=== PATIENT | male | born 2000 | race Caucasian/White ===

== ENCOUNTER 2020-04-03 11:37 | Emergency (ER) | payer OTHER ==
[2020-04-03 12:08] LABS: BASOPHILS % (AUTO) 0.5 % (0.0-5.0); EOSINOPHILS % (AUTO) 1.9 % (0.0-8.0); HEMATOCRIT 44.8 % (42-54); LYMPHOCYTES % (AUTO) 30.7 % (21.0-51.0); MEAN CORPUSCULAR HEMOGLOBIN 30.7 pg (27.0-33.0); MEAN CORPUSCULAR HGB CONC 33.3 g/dL (32.0-36.0); MEAN CORPUSCULAR VOLUME 92.4 fL (80-100); MONOCYTES % (AUTO) 6.8 % (3.0-13.0); NEUTROPHILS % (AUTO) 59.7 % (40.0-77.0); PLATELET COUNT (AUTO) 324 K/uL (130-400); RED BLOOD CELL COUNT(AUTO) 4.85 MIL/uL (4.50-6.20); RED CELL DISTRIBUTION WIDTH 12.6 % (11.0-15.5)
[2020-04-03 12:18] LABS: POTASSIUM 4.1 mmol/L (3.5-5.1)
[2020-04-03] MEDS ORDERED: IOHEXOL 350 MG/ML 100ML INFUS..BTL IV ONE (12:19)
[2020-04-03 12:25] LABS: ALBUMIN 4.4 g/dL (3.5-5.0); BILIRUBIN,TOTAL 0.2 mg/dL (0.2-1.0); TOTAL PROTEIN, SERUM 8.1 g/dL (6.0-8.3)
[2020-04-03] MEDS ORDERED: ONDANSETRON 4MG INJ ONE (12:37)
[2020-04-03] MEDS ORDERED: MORPHINE 4 MG SYG ONE (12:38)
== END 2020-04-03 14:49 | disposition left against medical advice (07) ==
LOC: EDH 11:37
DX: S06.0X0A Concussion without loss of consciousness, initial encounter (principal); S80.211A Abrasion, right knee, initial encounter; S60.511A Abrasion of right hand, initial encounter; S40.012A Contusion of left shoulder, initial encounter; Z72.0 Tobacco use; V68.9XXA Unspecified occupant of heavy transport vehicle injured in noncollision transport accident in traffic accident, initial encounter; Y93.89 Activity, other specified; Y92.410 Unspecified street and highway as the place of occurrence of the external cause; Y99.8 Other external cause status
CPT/HCPCS: 36415; 70450; 71045; 71260; 72125; 73030; 80053; 85025; 86850; 86900; 86901; 96374; 96375; 99285; J2270; J2405; Q9967